=== PATIENT | male | born 1960 | race Two or more races ===

== ENCOUNTER 2020-06-18 16:12 | Inpatient (IN) | payer OTHER, MEDICAID ==
[2020-06-18] VITALS (17 sets, daily range): BP systolic 103–137; BP diastolic 52–79
[~2020-06-18] VITALS: Ht 167.6 cm; Wt 87.7 kg
[2020-06-18] MEDS ORDERED: ZINC SULFATE 220mg CAP or TAB PO ONE (16:45)
[2020-06-18] MEDS ORDERED: AZITHROMYCIN 500MG/ 250ML 250 ML IV ONE (16:45)
[2020-06-18] MEDS ORDERED: methylPREDNISolone SOD SUCC 125 MG/2 ML VL IV ONE (16:45)
[2020-06-18] MEDS ORDERED: ASCORBIC ACID 500 MG TAB PO ONE (16:45)
[2020-06-18 17:09] LABS: Basophils # (auto) 0.1 10 ^3/uL (0-0.2); Basophils % (auto) 0.6 % (0.0-2.0); Eosinophils # (auto) 0.1 10 ^3/uL (0-0.8); Eosinophils % (auto) 0.7 % (0.0-7.0); Hematocrit 40.3 % (41.0-53.0); Hemoglobin 13.4 g/dL (13.5-17.5); Lymphocytes # (auto) 2.1 10 ^3/uL (0.4-5.4); Lymphocytes % (auto) 19.2 % (10.0-50.0); Mean Corpuscular Hemoglobin 29.4 pg (28.0-32.0); Mean Corpuscular Hgb Conc. 33.3 g/dL (32.0-36.0); Mean Corpuscular Volume 88.1 fL (80.0-100.0); Monocytes # (auto) 0.7 10 ^3/uL (0-1.3); Monocytes % (auto) 6.5 % (0.0-12.0); Platelet Count (auto) 231 10^3/uL (140-450); Red Blood Cells 4.58 10^6/uL (4.5-5.90); Red Cell Distribution Width 13.9 % (11.8-14.3)
[2020-06-18 17:29] LABS: Albumin 3.1 g/dL (3.4-5.0); Calcium 8.4 mg/dL (8.5-10.1); Potassium 4.2 mmol/L (3.5-5.1)
[2020-06-18 17:30] LABS: Lactic Acid w/Reflex 2.3 mmol/L (0.4-2.0)
[2020-06-18] MEDS ORDERED: TENECTEPLASE 50 MG KIT IV ONE (17:30)
[2020-06-18 17:36] LABS: Bilirubin, Total 0.3 mg/dL (0.2-1.0); CRP High Sensitivity 0.82 mg/dL (< 0.3); Total Protein 7.5 g/dL (6.4-8.2)
[2020-06-18] MEDS ORDERED: LIDOCAINE 2%HCL (LOCAL ANESTH.) INJ 20ML MDV ONE (17:40)
[2020-06-18] MEDS ORDERED: IOHEXOL 350 MG/ML 100ML IJ ONE (17:40)
[2020-06-18] MEDS ORDERED: ONDANSETRON HCL 4 MG/2 ML VIAL ONE (17:41)
[2020-06-18] MEDS ORDERED: MORPHINE SULF INJ 2 MG/ML SYRINGE 1ML ONE (17:41)
[2020-06-18] MEDS ORDERED: HEPARIN SODIUM (PORCINE) 5000 UNITS/ML 1ML VIAL ONE (17:42)
[2020-06-18] MEDS ORDERED: MORPHINE SULF INJ 2 MG/ML SYRINGE 1ML IV ONE (17:45)
[2020-06-18] MEDS ORDERED: ONDANSETRON HCL 4 MG/2 ML VIAL IV ONE (17:45)
[2020-06-18] MEDS ORDERED: HEPARIN SODIUM (PORCINE) 5000 UNITS/ML 1ML VIAL IV ONE (17:45)
[2020-06-18] MEDS ORDERED: ANGIOMAX 250 MG VIAL IV ONE (17:57)
[2020-06-18] MEDS ORDERED: SODIUM CHL 0.9% 50 ML ONE (17:58)
[2020-06-18] MEDS ORDERED: MIDAZOLAM HCL 1MG/1ML-2 ML VIAL ONE (17:58)
[2020-06-18] MEDS ORDERED: fentaNYL CITRATE 100 MCG/2 ML VL ONE (17:58)
[2020-06-18] MEDS ORDERED: IODIXANOL 320MG/ML 100ML BTL IV ONE (17:58)
[2020-06-18] MEDS ORDERED: VERAPAMIL 2.5MG/ML INJ 2ML VIAL IV ONE (17:59)
[2020-06-18] MEDS ORDERED: TICAGRELOR 90 MG TAB ONE (18:50)
[2020-06-18] MEDS ORDERED: ASPirin 325 MG TAB ONE (18:51)
[2020-06-18] MEDS ORDERED: SODIUM CHLORIDE 0.9% 1,000 ML IV ONE (19:15)
[2020-06-18] MEDS ORDERED: NITROGLYCERIN 0.4 MG SL TAB SL PRN (19:15)
[2020-06-18] MEDS ORDERED: MORPHINE SULF INJ 2 MG/ML SYRINGE 1ML IV PRN (19:15)
--- NOTE | 2020-06-18 20:05 | NUR ---
Received patient from seed laboratory technician. Received by bed, on portable monitor and oxygen. Placed patient on monitor, no sign of respiratory distress, AO 4, Amharic speaking. Reports no chest pain. Vasc band on right wrist, no sign of bleeding, radial pulse present, color same throughout, cap refill 4 seconds, will deflate band according to Vasc Band Removal Instruction protocol. Will continue to monitor site sign for bleeding, redness, sensation, color, pulses and cap refill. [place] patient to call light, verbalized understanding. Urinated 120 cc yellow color.
[2020-06-18] MEDS: ATORVASTATIN 20 MG TAB PO SCH (22:00)
--- NOTE | 2020-06-18 23:11 | NUR ---
Sent [facility] Covid with Megan (secretory)
[2020-06-19] VITALS (33 sets, daily range): BP systolic 89–128; BP diastolic 50–92
[2020-06-19] MEDS ORDERED: OMEG300C7 OR (02:43)
[2020-06-19 05:34] LABS: Basophils # (auto) 0 10 ^3/uL (0-0.2); Basophils % (auto) 0.1 % (0.0-2.0); Eosinophils # (auto) 0 10 ^3/uL (0-0.8); Hematocrit 39.7 % (41.0-53.0); Hemoglobin 13.5 g/dL (13.5-17.5); Lymphocytes # (auto) 0.9 10 ^3/uL (0.4-5.4); Lymphocytes % (auto) 5.6 % (10.0-50.0); Mean Corpuscular Hemoglobin 29.8 pg (28.0-32.0); Mean Corpuscular Volume 87.7 fL (80.0-100.0); Monocytes # (auto) 0.2 10 ^3/uL (0-1.3); Monocytes % (auto) 1.2 % (0.0-12.0); Neutrophils # (auto) 15.1 10 ^3/uL (1.6-8.6); Neutrophils % (auto) 93.1 % (37.0-80.0); Platelet Count (auto) 242 10^3/uL (140-450); Red Blood Cells 4.53 10^6/uL (4.5-5.90); White Blood Cell 16.2 10^3/uL (4.4-10.8)
[2020-06-19 06:04] LABS: Albumin 3.1 g/dL (3.4-5.0); BUN/Creatinine Ratio 17.4; Bilirubin, Total 0.5 mg/dL (0.2-1.0); Calcium 8.6 mg/dL (8.5-10.1); Magnesium 1.9 mg/dL (1.6-2.6); Potassium 4.3 mmol/L (3.5-5.1); Total Protein 7.6 g/dL (6.4-8.2)
[2020-06-19] MEDS: TICAGRELOR 90 MG TAB PO SCH ×3 (06:31→21:57)
--- NOTE | 2020-06-19 07:21 | NUR ---
REPORT RECEIVED FROM PROCESS TRAINER RN
--- NOTE | 2020-06-19 08:19 | NUR ---
DR. KNAPP NOTIFIED OF PATIENT ADMISSION
--- NOTE | 2020-06-19 08:37 | NUR ---
DR. STEEL AT BEDSIDE
[2020-06-19] MEDS: ENALAPRIL MALEATE 2.5 MG TAB PO SCH (09:05)
[2020-06-19] MEDS: ATORVASTATIN 20 MG TAB PO SCH (09:05)
--- NOTE | 2020-06-19 09:21 | NUR ---
PATIENT PROVIDED WITH BREAKFAST TRAY
[2020-06-19] MEDS ORDERED: NITR0.4S29 SL (10:06)
[2020-06-19] MEDS ORDERED: ASPI81CH43 PO (10:06)
[2020-06-19] MEDS ORDERED: TICA90TA PO (10:06)
[2020-06-19] MEDS ORDERED: ENAL2.5T7 PO (10:06)
[2020-06-19] MEDS ORDERED: ATOR20TA50 PO (10:06)
--- NOTE | 2020-06-19 10:31 | NUR ---
ECHO AT BEDSIDE
--- NOTE | 2020-06-19 12:44 | NUR ---
PATIENT PROVIDED WITH LUNCH TRAY
--- NOTE | 2020-06-19 12:50 | NUR ---
Faxed request [facility] [phone] for HH and Safety Eval
--- NOTE | 2020-06-19 14:12 | NUR ---
Spoke with Lore LINARES at [facility] [phone] and stated that [facility] [phone] will be seeing the patient.
--- NOTE | 2020-06-19 15:03 | NUR ---
PARTIAL LINEN CHANGE PERFORMED AT THIS TIME
--- NOTE | 2020-06-19 17:16 | NUR ---
PATIENT RESTING WITH NO S/S OF DISTRESS
--- NOTE | 2020-06-19 19:04 | NUR ---
REPORT GIVEN TO DAMI DIXON TO ASSUME CARE
--- NOTE | 2020-06-19 22:50 | NUR ---
REPORT GIVEN TO KAMARI DIXON PT MOVING FROM 109 ICU TO 250B
--- NOTE | 2020-06-20 | NUR ---
TRANSFERRED PATIENT TO ROOM 250B BY WHEELCHAIR, ON BOX TELEMETRY, ACLS PROTOCOL (BOX) ALL BELONGINGS INCLUDING CELL PHONE WENT WITH PATIENT. ATTENDING NURSE AT BEDSIDE, ORIENTING PATIENT TO THE ROOM.
--- NOTE | 2020-06-20 00:10 | NUR ---
ICU Downgrade Assumed care of patient, awake and alert. No S/S of distress/SOB or pain. Instructed on POC and to call for assist PRN, will continue to monitor for changes Q1hr and PRN.
--- NOTE | 2020-06-20 00:15 | NUR ---
Stool Softener Patient is asking for a stool softener prescription before he gets discharge to prevent constipation. Will endorse to dayshift nurse.
[2020-06-20 05:00] VITALS: BP 133/81
--- NOTE | 2020-06-20 07:22 | NUR ---
Opening Shift Note Assumed care of patient, awake and alert. No S/S of distress/SOB or pain. Instructed on POC and to call for assist PRN, will continue to monitor for changes Q1hr and PRN.
[2020-06-20 08:04] LABS: Basophils # (auto) 0 10 ^3/uL (0-0.2); Basophils % (auto) 0.2 % (0.0-2.0); Eosinophils # (auto) 0.1 10 ^3/uL (0-0.8); Eosinophils % (auto) 0.6 % (0.0-7.0); Hematocrit 39.5 % (41.0-53.0); Hemoglobin 13.7 g/dL (13.5-17.5); Lymphocytes # (auto) 2.3 10 ^3/uL (0.4-5.4); Lymphocytes % (auto) 19.7 % (10.0-50.0); Mean Corpuscular Hemoglobin 30.3 pg (28.0-32.0); Mean Corpuscular Hgb Conc. 34.6 g/dL (32.0-36.0); Mean Corpuscular Volume 87.6 fL (80.0-100.0); Monocytes # (auto) 0.5 10 ^3/uL (0-1.3); Monocytes % (auto) 4.6 % (0.0-12.0); Neutrophils # (auto) 8.7 10 ^3/uL (1.6-8.6); Neutrophils % (auto) 74.9 % (37.0-80.0); Platelet Count (auto) 220 10^3/uL (140-450); Red Blood Cells 4.51 10^6/uL (4.5-5.90); Red Cell Distribution Width 14.2 % (11.8-14.3); White Blood Cell 11.7 10^3/uL (4.4-10.8)
[2020-06-20 08:24] LABS: Calcium 8.9 mg/dL (8.5-10.1); Magnesium 2.2 mg/dL (1.6-2.6); Potassium 3.9 mmol/L (3.5-5.1)
[2020-06-20 08:26] LABS: BUN/Creatinine Ratio 20.7
[2020-06-20 09:00] VITALS: BP 135/81
--- NOTE | 2020-06-20 09:46 | NUR ---
MD Silvia STEEL CLEARED PATIENT FOR DISCHARGE
[2020-06-20] MEDS ORDERED: DOCUSATE SOD 100 MG CAP PO ONE (10:00)
[2020-06-20] MEDS ORDERED: ENOXAPARIN SOD 40 MG/0.4 ML SYRINGE SC SCH (10:00)
[2020-06-20] MEDS ORDERED: ASPirin 81 mg TAB PO SCH (10:00)
[2020-06-20] MEDS: TICAGRELOR 90 MG TAB PO SCH (10:46)
[2020-06-20] MEDS: ATORVASTATIN 20 MG TAB PO SCH (10:47)
[2020-06-20] MEDS: ENALAPRIL MALEATE 2.5 MG TAB PO SCH (10:48)
[2020-06-20 11:02] VITALS: BP 135/81
--- NOTE | 2020-06-20 12:23 | NUR ---
PT REFUSING MRSA SWAB STATES "I WAS ALREADY SWABBED AND I DO NOT WANT TO GET SWABBED AGAIN", JANITOR DIDIER DIXON PRESENT. PATIENT EDUCATED ON BENEFITS OF MRSA SWAB AND INFORMATION. PT VERBALIZED UNDERSTANDING AND CONTINUES TO REFUSE SWAB
--- NOTE | 2020-06-20 12:25 | NUR ---
PT HAS MEDICATIONS IN HAND
== END 2020-06-20 12:25 | disposition home or self-care (01) | DRG 246 ==
LOC: ER 16:12 → ICU WEST 16:13 → TELE-EAST 06-20
PROVIDERS: ADMIT Internal Medicine; ATTEND Internal Medicine
PROC: 027034Z Dilation of Coronary Artery, One Artery with Drug-eluting Intraluminal Device, Percutaneous Approach (ICD-10-PCS; principal; 2020-06-18)
PROC: B211YZZ Fluoroscopy of Multiple Coronary Arteries using Other Contrast (ICD-10-PCS; 2020-06-18)
DX: I21.19 ST elevation (STEMI) myocardial infarction involving other coronary artery of inferior wall (principal); U07.1 COVID-19; D72.829 Elevated white blood cell count, unspecified; I25.10 Atherosclerotic heart disease of native coronary artery without angina pectoris; E78.5 Hyperlipidemia, unspecified; E11.9 Type 2 diabetes mellitus without complications; Z86.73 Personal history of transient ischemic attack (TIA), and cerebral infarction without residual deficits; Z79.899 Other long term (current) drug therapy
CPT/HCPCS: 36415; 71045; 80048; 80053; 82728; 83036; 83605; 83615; 83735; 83880; 84484; 85025; 85379; 86141; 87040; 87081; 87426; 92928; 93005; 93306; 93454; 99152; 99153; C1874; C1887; G0378; J2250; J2405; Q9967

== ENCOUNTER 2020-07-18 06:38 | Inpatient (IN) | payer OTHER, MEDICAID ==
[~2020-07-18] VITALS: Ht 167.6 cm; Wt 89.8 kg
[~2020-07-18 06:38] MED LIST: ASPI1TAB19 PO; ATOR80TA PO; ENAL20TA8 PO; NITR0.4S29 SL; OMEGCAP28 OR; TICA90TA PO
[2020-07-18] MEDS ORDERED: VERAPAMIL 2.5MG/ML INJ 2ML VIAL IV ONE ×2 (08:02→08:27)
[2020-07-18] MEDS ORDERED: fentaNYL CITRATE 100 MCG/2 ML VL ONE (08:02)
[2020-07-18] MEDS ORDERED: ANGIOMAX 250 MG VIAL IV ONE ×2 (08:02→08:35)
[2020-07-18] MEDS ORDERED: HEPARIN SODIUM (PORCINE) 5000 UNITS/ML 1ML VIAL ONE (08:02)
[2020-07-18] MEDS ORDERED: MIDAZOLAM HCL 1MG/1ML-2 ML VIAL ONE ×2 (08:03→08:31)
[2020-07-18] MEDS ORDERED: SODIUM CHL 0.9% 0 ML ONE (08:03)
[2020-07-18] MEDS ORDERED: LIDOCAINE 2%HCL (LOCAL ANESTH.) INJ 20ML MDV ONE (08:10)
[2020-07-18] MEDS ORDERED: IODIXANOL 320MG/ML 100ML BTL IV ONE (08:10)
[2020-07-18] MEDS ORDERED: NITROGLYCERIN 5MG/ML 10ML VIAL IV ONE (08:27)
[2020-07-18] MEDS ORDERED: diphenhdrAMINE HCL 50 MG/1 ML VL ONE (08:29)
[2020-07-18] MEDS ORDERED: SODIUM CHL 0.9% 50 ML ONE (08:35)
[2020-07-18] MEDS ORDERED: ASPirin 81 mg TAB ONE (08:54)
[2020-07-18] MEDS ORDERED: CLOPIDOGREL 300 MG TAB ONE (08:54)
[2020-07-18] MEDS ORDERED: MORPHINE SULF INJ 2 MG/ML SYRINGE 1ML IV PRN (09:45)
[2020-07-18] MEDS ORDERED: NITROGLYCERIN 0.4 MG SL TAB SL PRN ×2 (09:45)
[2020-07-18] MEDS ORDERED: ONDANSETRON HCL 4 MG/2 ML VIAL IV PRN (09:45)
[2020-07-18] MEDS ORDERED: ACETAMINOPHEN 500 MG TAB PO PRN (09:45)
[2020-07-18] MEDS ORDERED: HYDROcodone-ACET 5/325MG TAB PO PRN (09:45)
[2020-07-18] MEDS: ENALAPRIL MALEATE 10 MG TAB PO SCH ×2 (10:00→22:34)
[2020-07-18] MEDS ORDERED: PATIENTS OWN MEDICATION (Enalapril Maleate 1 TAB) PO SCH (10:00)
[2020-07-18] MEDS ORDERED: ATORVASTATIN 20 MG TAB PO SCH (18:00)
[2020-07-18] MEDS ORDERED: PATIENTS OWN MEDICATION (Atorvastatin Calcium (Lipitor) 1 TAB) PO SCH (18:00)
[2020-07-18 18:08] VITALS: BP 134/84
--- NOTE | 2020-07-18 18:47 | NUR ---
RECEIVED PATIENT TO THE FLOOR AWAKE ALERT AND ORIENTED. PATIENT EATING DINNER BED LOCKED IN LOWEST POSITION WITH TWO SIDE RAILS UP AND CALL LIGHT IN REACH.
--- NOTE | 2020-07-18 20:00 | NUR ---
Opening Shift Note Assumed care of patient, awake and alert. No S/S of distress/SOB or pain. left wrist incision dressing is clean dry and intact. bilateral palpable radial pulses. capillary refill less than 3 seconds. no change in skin tone bilaterally. Instructed on POC and to call for assist PRN, will continue to monitor for changes Q1hr and PRN. bed in low position and call light within reach.
[2020-07-18 21:59] VITALS: BP 126/88
[2020-07-19 05:00] VITALS: BP 114/69
[2020-07-19] MEDS ORDERED: TICA90TA PO (06:06)
[2020-07-19] MEDS ORDERED: ENAL2.5T11 PO (06:06)
--- NOTE | 2020-07-19 06:41 | NUR ---
patient transferred to room 203. no signs of sob distress or pain
[2020-07-19] MEDS ORDERED: ASPirin-EC 81 mg tab PO SCH (07:00)
--- NOTE | 2020-07-19 07:10 | NUR ---
report given to dayshift rn patient denies sob distress or pain
--- NOTE | 2020-07-19 08:00 | NUR ---
Opening Shift Note Assumed care of patient, awake, alert and oriented X4. No S/S of distress/SOB or pain. Tele# 32, sinus bradycardia @ 58 bpm. IV to left antecubital, 20 gauge, patent and saline locked. Left radial angiogram access open to air, no swelling noted, normal circulation, sensation and motor function. Instructed on POC and to call for assist PRN, verbalized understanding. Bed locked, in lowest position, call light within reach, will continue to monitor for changes Q1hr and PRN.
[2020-07-19 08:59] VITALS: BP 146/83
[2020-07-19] MEDS ORDERED: LACTULOSE 20Gm/30ML SOLN PO ONE (09:15)
[2020-07-19] MEDS ORDERED: CLOPIDOGREL BISULFATE 75 MG TAB PO SCH (10:00)
[2020-07-19] MEDS: ENALAPRIL MALEATE 10 MG TAB PO SCH (10:16)
[2020-07-19 13:00] VITALS: BP 132/76
[2020-07-19 13:22] VITALS: BP 132/76
--- NOTE | 2020-07-19 16:25 | NUR ---
Discharge instructions given as ordered. Encourage to follow up with PMD as instructed. All questions and concerns addressed. Patient verbalized understanding. Medication reconciliation form completed and copy given to patient. Home medications held in Pharmacy returned to patient, and needed vaccines given. IV removed with catheter intact, pressure dressing applied. Telemetry unit returned to ICU. Patient taken to vehicle via wheelchair with all personal belongings, accompanied by staff and family member. No distress noted at time of departure.
== END 2020-07-19 16:15 | disposition home or self-care (01) | DRG 247 ==
LOC: CATH 06:38 → TELE 06:39 → TELE-CENTR 19:07
PROVIDERS: ADMIT Internal Medicine; ATTEND Internal Medicine
PROC: 027034Z Dilation of Coronary Artery, One Artery with Drug-eluting Intraluminal Device, Percutaneous Approach (ICD-10-PCS; principal; 2020-07-18)
PROC: 02C03ZZ Extirpation of Matter from Coronary Artery, One Artery, Percutaneous Approach (ICD-10-PCS; 2020-07-18)
PROC: 4A023N7 Measurement of Cardiac Sampling and Pressure, Left Heart, Percutaneous Approach (ICD-10-PCS; 2020-07-18)
PROC: B211YZZ Fluoroscopy of Multiple Coronary Arteries using Other Contrast (ICD-10-PCS; 2020-07-18)
DX: I25.10 Atherosclerotic heart disease of native coronary artery without angina pectoris (principal); I10 Essential (primary) hypertension; E78.00 Pure hypercholesterolemia, unspecified; Z20.828 Contact with and (suspected) exposure to other viral communicable diseases; I25.2 Old myocardial infarction; Z86.19 Personal history of other infectious and parasitic diseases; Z79.899 Other long term (current) drug therapy
CPT/HCPCS: 92933; 93458; 99152; 99153; C1724; C1769; C1874; G0378; J2250; J3490; Q9967

== ENCOUNTER 2022-11-01 11:23 | Emergency (ER) | payer MEDICAID, OTHER ==
[~2022-11-01] VITALS: Ht 167.6 cm; Wt 81.8 kg
[~2022-11-01 11:23] MED LIST changes: +ENAL2.5T11 PO
[2022-11-01 11:41] LABS: Basophils # (auto) 0 10 ^3/uL (0-0.2); Basophils % (auto) 0.3 % (0.0-2.0); Eosinophils # (auto) 0.1 10 ^3/uL (0-0.8); Eosinophils % (auto) 1.2 % (0.0-7.0); Hemoglobin 15.7 g/dL (13.5-17.5); Lymphocytes # (auto) 2.3 10 ^3/uL (0.4-5.4); Lymphocytes % (auto) 33.2 % (10.0-50.0); Mean Corpuscular Hemoglobin 29.5 pg (28.0-32.0); Mean Corpuscular Hgb Conc. 34.1 g/dL (32.0-36.0); Mean Corpuscular Volume 86.4 fL (80.0-100.0); Monocytes # (auto) 0.4 10 ^3/uL (0-1.3); Monocytes % (auto) 6.4 % (0.0-12.0); Neutrophils # (auto) 4.1 10 ^3/uL (1.6-8.6); Neutrophils % (auto) 58.9 % (37.0-80.0); Nucleated Red Blood Cells % 0.1 %; Red Blood Cells 5.32 10^6/uL (4.5-5.90); Red Cell Distribution Width 14.5 % (11.8-14.3)
[2022-11-01] MEDS ORDERED: ASPirin 81 mg TAB PO ONE (11:45)
[2022-11-01 12:32] LABS: Calcium 8.4 mg/dL (8.5-10.1); Magnesium 2.4 mg/dL (1.6-2.6); Potassium 4.2 mmol/L (3.5-5.1)
[2022-11-01 12:35] LABS: BUN/Creatinine Ratio 10.8; Bilirubin, Total 0.5 mg/dL (0.2-1.0); Total Protein 7.4 g/dL (6.4-8.2)
[2022-11-01 15:13] VITALS: BP 160/99
== END 2022-11-01 15:14 | disposition home or self-care (01) ==
LOC: ER 11:23
DX: R07.89 Other chest pain (principal); F41.8 Other specified anxiety disorders; I25.2 Old myocardial infarction; Z90.49 Acquired absence of other specified parts of digestive tract; Z79.82 Long term (current) use of aspirin; Z79.899 Other long term (current) drug therapy
CPT/HCPCS: 36415; 71046; 80053; 83735; 84484; 85025; 93005